=== PATIENT | female | born 1995 | race Caucasian/White ===

== ENCOUNTER 2025-01-26 10:39 | Outpatient (AMB) | payer BC, SELFPAY ==
[2025-01-26 11:02] VITALS: BP 111/72; PULSE 76; RESP 16; TEMP 36.6; O2SAT 97; BMI 20.6
--- NOTE | 2025-01-26 11:02 | GYNCLNT_ITS ---
Vital Signs 01/26/25 11:02 Height 1.73 m Height Method Stated Weight 61.462 kg Weight Measurement Method Standing Scale BMI 20.6 BP 111/72 Blood Pressure Source Automatic Cuff Blood Pressure Location Right Upper Arm Position Sitting Respiration 16 Pulse 76 Pulse Source Monitor Temp 98 F Temp Source Oral Pulse Oximetry (%) 97 Oxygen Delivery Method Room Air Allergies/Home Meds Allergies & Medications Allergies No Known Allergies Allergy (Verified 01/26/25 11:03) Medication Reconciliation No Known Home Medications 01/26/25 [History Confirmed 01/26/25] Intake Visit Data Collection New Patient or Established: New Patient (never been to [facility]) Reason for Visit:: ANNUAL WELLNESS Seen by Clinical Staff ONLY (RN/MA): No Government Relations Analyst Required: No Do You Feel Safe at Home: Yes Authorities Contacted: N/A PCP or OBGYN visit in last 3 months: No Hx Now: No Are you currently on any form of Control: Yes Pain Present Currently: No Pain Scale Used: Hardwick-Fu/Numerical Pain scale:: 0 Smoking Status Smoking Status: Never smoker 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 She is still breast-feeding her youngest daughter. 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 She has a history of a vaginal delivery in 2020 female at 41 weeks weighing 8 pounds 13 ounces. She has a history of an early ectopic versus miscarriage treated with methotrexate. She has a history of a vaginal delivery in 2023 at 41 weeks another girl weighing 8 pounds 14 ounces. All her [place] were [place] [facility] [place] [facility]RAVEL ROOFER Questionnaires Covid-19 Vaccine Questionnaire Has patient been vacinated for Covid-19 Have you been vacinated for Covid-19: Yes PHQ-9 PHQ-2 Over the last 2 weeks, how often have you been bothered by any of the following problems? 1. Little interest or pleasure in doing things: not at all 2. Feeling down, depressed, or hopeless: not at all Total score: 0 PHQ-9 3. Trouble falling or staying asleep, or sleeping too much: Not at all 4. Feeling tired or having little energy: Not at all 5. Poor appetite or overeating: Not at all 6. Feeling bad about yourself - or that you are a failure or have let yourself or your family down: Not at all 7. Trouble concentrating on things, such as reading the newspaper or watching television: Not at all 8. Moving or speaking so slowly that other people could have noticed? - Or the opposite - being so fidgety or restless that you have been moving around a lot more than usual: not at all 9. Thoughts that you would be better off or of hurting yourself in some way: Not at all Total score: 0 Source: Developed by Drs. Vitaliy Monzon, Asmita Woodward, Karlo Cervantes and colleagues, with an educational gerardo from [employer]. Depression screen completed yes Social History Living Situation History Marital Status: Lives With: Family Housing: House Housing Other:: Patient stays at home. Her is a walnut galvez. Tobacco History Smoking Status: Never smoker Domestic Abuse History Do You Feel Safe at Home: Yes History of Present Illness HPI Narrative The patient is a very pleasant 29-year-old -0-2-2 history of vaginal delivery x 2. The first daughter was born in 2020 weighing 8 pounds 13 ounces. She was induced for postdates at 41 weeks. She went natural with no epidural. She stated she pushed about an hour. Dr. Gregory delivered her. She then had some type of miscarriage versus early ectopic and this was treated with methotrexate. Patient is unsure whether she had a second positive test. Those were both in 2022. She then had another vaginal delivery in 2023. Another daughter also induced at 41 weeks weighing 8 pounds 14 ounces. She is still breast-feeding her youngest. Today she has no gynecological complaints she just wants to establish care and get an annual exam. She is exercises regularly and has no regular menstrual cycles at this time as she is still breast-feeding. Review of Systems Review of Systems Narrative Review of Systems: No abnormal bleeding. No breast pain. No fevers, no chills. No pain during intercourse. No urinary complaints. No pelvic pressure. Exam General Limitations: no limitations General Appearance: alert, in no apparent distress, comfortable, cooperative, healthy appearing, well developed and well groomed Neck Neck exam: Present normal inspection, full ROM and trachea midline Chest Chest inspection: Present normal inspection and symmetric chest wall rise Exp Chest Breast: bilateral: other (Normal breast exam bilaterally. One breast engorged as the baby had not eaten off the side before coming to the appointment.) Resp Respiratory exam: Present normal lung sounds bilaterally Card Cardiovascular exam: Present regular rate, normal rhythm and normal heart sounds Abdominal Abdominal exam: Present soft External exam: Present normal external exam Speculum exam: Present normal speculum exam and other (No significant pelvic organ prolapse present.) Bimanual exam: Present normal bimanual exam (Uterus is anteverted normal-sized) Extremities Extremities exam: Present normal inspection and full ROM Back Back exam: Present normal inspection and full ROM Psych Psychiatric exam: Present normal affect and normal mood Skin Skin exam: Present warm, dry, intact and normal color Office Procedures OB Clinic LOC & Office Proc's Nursing/Assessment Patient Status: Initial/New Patient OB Clinic Nursing Assessment: Medication Reconciliation, Update PMH in EMR and Vital Signs OB Clinic Coordination of Care: Complex Care and Chronic Disease 1-5, Consent,records obtained, informed consent, Education Simp Pt/Fam, Lab and Imaging orders, Results/Orders obtained and Staff clarify orders Miscellaneous Interventions: Pelvic/Pap Smear Set up New Patient Charge New Patient Point Assignment: 1124 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 Breast exam done encouraged. This patient had a possible ectopic in the past, would recommend patient call with a positive test so we can follow quantitative hCGs. I told her the chance of a repeat ectopic with 1 ectopic is approximately 10%. Patient agrees with this plan. Right now she is breast-feeding her 1-year-old and not planning on . She states she does not need a refill on her control. She will call with any problems and follow-up in 1 year or as needed. GRAVEL ROOFER: Papsmear Pap Smear Procedure [place] in room during procedure?: No Pre-op diagnosis general: Annual wellness exam Post-op diagnosis procedure note: Same Procedure Notes:: Pap with cotesting to HPV performed. Papsmear completed: yes
== END 2025-01-26 11:17 | disposition home or self-care (01) ==
LOC: HODSOBC 10:39
PROVIDERS: PCP Obstetrics & Gynecology; Referring Provider Obstetrics & Gynecology; Supervising Provider Obstetrics & Gynecology; Visit Provider Obstetrics & Gynecology
DX: Z01.419 Encounter for gynecological examination (general) (routine) without abnormal findings (principal); Z11.51 Encounter for screening for human papillomavirus (HPV)
CPT/HCPCS: 99204; Q0091; G0463